=== PATIENT | female | born 1960 | race American Indian/Alaskan Native ===

== ENCOUNTER 2021-02-06 23:03 | Observation (INO) | payer OTHER ==
[2021-02-06] MEDS ORDERED: SODIUM CHLORIDE 0.9% 1000 ML 1,000 ML IV ONE (23:56)
[2021-02-06] MEDS ORDERED: fentaNYL 100 MCG/2 ML INJ IV ONE (23:56)
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
--- NOTE | 2021-02-07 00:39 | XRay Report ---
Right ankle 3 views INDICATION: Right ankle pain following injury IMPRESSION: Severely fracture or dislocation of the right ankle with comminuted intra-articular fract ure involving the tibial plafond with extension to the medial malleolus. There is also a displaced fr acture involving the lateral malleolus. The talus is posteriorly displaced with respect to the tibial plafond. Signer Name: Eduar Ziegler MD Signed: 02/07/2021 12:35 AM Workstation Name: [id number]
[2021-02-07] MEDS: ONDANSETRON 4 MG/2 ML INJ IV ONE ×2 (00:46→01:47)
[2021-02-07] MEDS: MIDAZOLAM 5 MG/5 ML INJ MDV IV ONE ×2 (00:47→01:51)
[2021-02-07 02:24] LABS: Basophils % (Auto) 0.3 % (0.0-1.8); Calcium 9.6 mg/dL (8.4-10.2); Eosinophils % (Auto) 0.8 % (0.0-4.3); Hematocrit 37.1 % (30.3-42.9); Hemoglobin 12.6 gm/dl (10.1-14.3); Lymphocytes # (Auto) 1.4 K/mm3 (1.2-5.4); Lymphocytes % (Auto) 24.6 % (13.4-35.0); Mean Corpuscular HGB Conc 34 % (30-34); Mean Corpuscular Volume 96 fl (79-97); Monocytes # (Auto) 0.5 K/mm3 (0.0-0.8); Monocytes % (Auto) 8.7 % (0.0-7.3); Platelet Count 334 K/mm3 (140-440); Red Blood Count 3.86 M/mm3 (3.65-5.03); Red Cell Distribution Width 13.3 % (13.2-15.2)
--- NOTE | 2021-02-07 02:27 | XRay Report ---
CHEST 1 VIEW INDICATION / CLINICAL INFORMATION: Preoperative surgery clearance. FINDINGS: SUPPORT DEVICES: None. HEART / MEDIASTINUM: No significant abnormality. LUNGS / PLEURA: No significant pulmonary or pleural abnormality. No pneumothorax. ADDITIONAL FINDINGS: No significant additional findings. IMPRESSION: 1. No acute findings. Signer Name: Eduar Ziegler MD Signed: 02/07/2021 2:23 AM Workstation Name: [id number]
--- NOTE | 2021-02-07 02:28 | XRay Report ---
Right ankle 3 views INDICATION: Right ankle pain following injury IMPRESSION: Improved anatomic alignment of the severe fracture dislocation of the right ankle followi ng reduction. Overlying cast placement identified. Signer Name: Eduar Ziegler MD Signed: 02/07/2021 2:23 AM Workstation Name: [id number]
[2021-02-07] MEDS ORDERED: ALBUTEROL 2.5 MG/3 ML NEBU IH PRN (03:25)
[2021-02-07] MEDS ORDERED: ACETAMINOPHEN 325 MG TAB PO PRN (03:25)
[2021-02-07] MEDS ORDERED: ONDANSETRON 4 MG/2 ML INJ IV PRN ×2 (03:25→16:00)
[2021-02-07] MEDS ORDERED: oxyCODONE /ACETAMINOPHEN 5-325MG TAB PO PRN (03:25)
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
[2021-02-07] MEDS: HEPARIN 5,000 UNIT/1 ML VIAL SUB-Q SCH ×3 (05:54→22:16)
[2021-02-07] MEDS ORDERED: IPRATROPIUM/ALBUTEROL SULFATE 3 ML AMPUL.NEB IH SCH (08:00)
[2021-02-07] MEDS: FAMOTIDINE 20 MG/2 ML INJ IV SCH ×2 (11:06→22:16)
[2021-02-07] MEDS: D5W/0.45% NACL 1,000 ML IV SCH ×2 (11:06→20:32)
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
--- NOTE | 2021-02-07 11:49 | Electrocardiograph Report ---
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
[2021-02-07] MEDS ORDERED: NEOMY 40 MG/POLYMYXIN B 200,000 UNITS/ML (GU) AMPULE IR ONE ×2 (12:24→14:24)
[2021-02-07] MEDS ORDERED: propofoL 200 MG/20 ML VIAL IV ONE ×2 (12:54→13:35)
[2021-02-07] MEDS ORDERED: HYDROmorphone 1 MG/1 ML INJ ONE (12:54)
[2021-02-07] MEDS ORDERED: LIDOCAINE MPF (2%) 20 MG/1 ML VIAL 5 ML ONE (12:54)
[2021-02-07] MEDS ORDERED: ceFAZolin 1 GM VIAL ONE ×2 (13:50)
[2021-02-07] MEDS ORDERED: ONDANSETRON 4 MG/2 ML INJ ONE (13:55)
[2021-02-07] MEDS ORDERED: dexAMETHasone 20 MG/5 ML VIAL ONE (13:55)
[2021-02-07] MEDS ORDERED: SODIUM CHLORIDE 0.9% IRR 1,500 ML BOTTLE IR ONE (14:24)
[2021-02-07] MEDS ORDERED: KETOROLAC 30 MG/1 ML INJ ONE (14:47)
--- NOTE | 2021-02-07 15:04 | Anesthesia Consultation ---
Anesthesia Consult and Med Hx Date of service: 02/07/21 - Airway Anesthetic Teeth Evaluation: Good ROM Head & Neck: Adequate Mental/Hyoid Distance: Adequate Mallampati Class: Class II Intubation Access Assessment: Probably Good - Pre-Operative Health Status ASA Pre-Surgery Classification: ASA2 Proposed Anesthetic Plan: General Nerve Block: Pop (post op, prn) - Pulmonary Hx Smoking: Yes (1 pack per week) Hx Respiratory Symptoms: No - Cardiovascular System Hx Hypertension: No - Central Nervous System CVA: No - Endocrine Hx Renal Disease: No Hx Liver Disease: No Hx Insulin Dependent Diabetes: No Hx Non-Insulin Dependent Diabetes: No Hx Thyroid Disease: No - Other Systems Hx Obesity: No
--- NOTE | 2021-02-07 15:05 | Anesthesia Day of Surgery ---
Anesthesia Day of Surgery - Day of Surgery Patient Examined: Yes Patient H&P Reviewed: Yes Patient is NPO: Yes
[2021-02-07] MEDS: HYDROmorphone 1 MG/1 ML INJ IV PRN ×2 (15:10→15:20)
[2021-02-07] MEDS ORDERED: BUPIVACAINE/PF (0.5%) 5 MG/1 ML 30 ML VIAL INFILTRATI ONE (15:12)
--- NOTE | 2021-02-07 15:12 | XRay Report ---
Right ankle 3 views INDICATION: Fracture fixation FINDINGS: Postoperative change with fibular plate and medial malleolar screw. Postsurgical fluoroscop ic alignment appears normal. Signer Name: Wade Kimble MD Signed: 02/07/2021 3:07 PM Workstation Name: [id number]
[2021-02-07] MEDS ORDERED: LACTATED RINGERS 1,000 ML ONE (15:13)
--- NOTE | 2021-02-07 15:56 | Operative Report ---
Operative Report Operative Report: Operative report Preop diagnosis : Trimalleolar fracture dislocation, RIGHT ankle Postop diagnosis: Trimalleolar fracture dislocation (without syndesmosis disruption) , RIGHT ankle Procedure: Open reduction internal fixation lateral malleolus and medial malleolus fracture, RIGHT ankle Surgeon: Angelo Perkins MD Anesthesia: General with LMA Details of operative technique: The Patient was prepared in the holding area after being brought over from the emergency department, where she was cleared for surgery. She was then brought to the operating room where she underwent satisfactory general anesthesia utilizing an LMA. She was placed in the supine position and all pressure points were well-padded. The right ankle ,foot and leg were then prepped and draped in the usual sterile fashion utilizing ChloraPrep solution as per protocol. She was administered 2 g Ancef IV prior to the start of the case. The Extremity was then elevated, exsanguinated with an Esmarch bandage and the tourniquet was inflated to 300 mmHg. A timeout was then called by the circulating nurse and once again the correct site was identified. C arm imaging was utilized throughout the case. Initial views showed a trimalleolar fracture that had been reduced in the emergency room for the tibiotalar dislocation. There was no disruption of the syndesmosis and the lateral malleolus fracture was an oblique minimally displaced fracture just above the joint line; the medial malleolus fracture was also a small singular fragment that was displaced posteriorly. The posterior malleolus was a small fragment less than 20% of the surface area of the plafond, and also was minimally displaced. Lateral Malleolus Fixation. Lateral malleolus was approached first. A lateral longitudinal incision approximately 10 cm in length was made overlying the lateral malleolar fracture. The dissection was carried down through the fibro fatty layer. Fracture hematoma was evacuated and the fracture was visualized which showed a minimally displaced distal fracture fragment with an oblique fracture line proximal to the joint line for the ankle joint. With minimal effort the fracture was reduced and a reduction clamp was used to stabilize the reduction. C- arm images confirmed near anatomic alignment. A 6-hole plate was then contoured and placed on the posterolateral edge of the distal fibula and utilizing 3.5 mm cortical screws (all but one locking )this fracture was secured in anatomic position with rigid stabilization. C-arm images in both AP and lateral planes confirmed the reduction and stabilization. Attention was then turned to the medial malleolus fracture. Medial Malleolar Fixation : Utilizing a small curved incision less than 1 cm in length, an opening was made at the very distal aspect of the medial malleolus distal fragment. Reduction earlier had relatively stabilized the medial fragment from its posterior position. Utilizing a 3.5 mm partially-threaded cannulated screw a single cannulated screw was placed across the fracture site, 44 mm in length. No other stabilization was required. C arm images then were taken for both AP ,lateral and mortise views while applying lateral stress there was no mortise widening and both fractures that were fixed showed excellent stability. The posterior malleolus fragment was deemed to be inconsequential and was therefore not surgically stabilized. Wounds were all irrigated thoroughly with normal saline. Deep fascial layer was closed with 0 Vicryl suture as was the subcutaneous layer for the lateral incision. The skin was reapproximated with 3-0 nylon interrupted sutures. The medial malleolus stab incision was repaired with 2 single 3-0 nylon sutures. Wounds were dressed with Xeroform and ABD pad secured by a Kerlix wrap, followed by application of a posterior splint which was secured with an Zander wrap. The patient was then awakened and taken to recovery room in excellent condition. Estimated blood loss: Minimal Drains: None Complications: None Tourniquet time: 51 minutes
[2021-02-07] MEDS ORDERED: diphenhydrAMINE 50 MG/ML VIAL IV SCH (16:30)
--- NOTE | 2021-02-07 17:28 | Post Anesthesia Evaluation ---
- Post Anesthesia Evaluation Patient Participated: Yes Airway Patent: Yes Stable Respiratory Function: Yes Nausea/Vomiting: No Temp > 96.8F: Yes Pain Manageable: Yes Adequeate Hydration: Yes Anesthesia Complications: No Other Comments: Popliteal block placed in PACU for post op analgesia w/ good result.
--- NOTE | 2021-02-07 20:17 | Event Note ---
Date: 02/07/21 Patient seen and examined Patient presented with right ankle fracture, orthopedic consulted Patient is s/p ORIF today, complains of pain and swelling on the right foot Continue PT evaluation supportive care Discharge planning when cleared by orthopedics
[2021-02-07] MEDS: ceFAZolin/NS 1 GM/50 ML 1 GM/50 ML BAG IV SCH (23:53)
[2021-02-08] MEDS: D5W/0.45% NACL 1,000 ML IV SCH ×2 (05:29→17:27)
[2021-02-08] MEDS: ceFAZolin/NS 1 GM/50 ML 1 GM/50 ML BAG IV SCH ×2 (05:29→13:37)
[2021-02-08] MEDS: HEPARIN 5,000 UNIT/1 ML VIAL SUB-Q SCH ×3 (05:30→21:42)
[2021-02-08 05:41] LABS: BUN/Creatinine Ratio 11; Blood Urea Nitrogen 10 mg/dL (7-17); Calcium 8.9 mg/dL (8.4-10.2); Hemolysis Index 1
[2021-02-08 05:44] LABS: Basophils % (Auto) 0.2 % (0.0-1.8); Hematocrit 38.3 % (30.3-42.9); Hemoglobin 13.3 gm/dl (10.1-14.3); Lymphocytes # (Auto) 0.5 K/mm3 (1.2-5.4); Mean Corpuscular HGB Conc 35 % (30-34); Mean Corpuscular Volume 97 fl (79-97); Monocytes # (Auto) 0.3 K/mm3 (0.0-0.8); Monocytes % (Auto) 4.6 % (0.0-7.3); Platelet Count 340 K/mm3 (140-440); Red Blood Count 3.95 M/mm3 (3.65-5.03)
[2021-02-08 05:51] LABS: INR 0.94 (0.87-1.13)
[2021-02-08] MEDS: FAMOTIDINE 20 MG/2 ML INJ IV SCH ×2 (09:29→21:42)
[2021-02-08] MEDS: MORPHINE 4 MG/1 ML INJ IV PRN (19:24)
--- NOTE | 2021-02-08 23:59 | Progress Note ---
Assessment and Plan -- Closed right ankle fracture --Dislocation of ankle, right, closed Orthopedic consulted, s/p ORIF of the right ankle joint Continue PT eval, follow clinically, pain meds as needed Encourage ambulation Patient complains of swelling pain and numbness of the right foot Continue supportive care, if clinically improves possible discharge tomorrow -- DVT prophylaxis Heparin 5000 units subcu every 8 hours for DVT prophylaxis. Pepcid 20 mg IV every 12 hours for GI prophylaxis. -- Patient is a full code Subjective Date of service: 02/08/21 Interval history: Patient seen and examined. Medical records and medication list reviewed. No acute event overnight noted by the RN. Patient denies any chest pain or difficulty breathing. Patient is tolerating diet. Continue to complains of swelling and numbness of the right foot Discussed plan of care at bedside with patient. Objective - Exam Narrative Exam: GENERAL: well-developed and well-nourished elderly -Dominican female lying on bed appeared to be in no discomfort. HEENT: Normocephalic. Atraumatic. No conjunctival congestion or icterus. Patient has moist mucous membranes. NECK: Supple. Trachea midline. CHEST/LUNGS: Clear to auscultated bilaterally, breathing nonlabored. No wheezes crackles or rhonchi. HEART/CARDIOVASCULAR: Regular in rate and rhythm. S1 and S2 positive. ABDOMEN: Abdomen is soft, nontender. Patient has normal bowel sounds. SKIN: There is no rash. Warm and dry. NEURO: No focal motor deficit. Follows command. MUSCULOSKELETAL: Right ankle with surgical dressing with swelling and tenderness of the toes EXTRIMITY: + edema, no cyanosis or clubbing. PSYCH: Cooperative. - Constitutional Vitals: Vital Signs - 12hr 02/08/21 02/08/21 02/08/21 13:35 18:17 19:24 Temperature 98.2 F 98.5 F Pulse Rate 63 65 Respiratory 16 16 18 Rate Blood Pressure 131/52 167/63 O2 Sat by Pulse 100 100 Oximetry - Labs CBC & Chem 7: 02/08/21 04:00 02/08/21 04:00 Labs: Abnormal lab results 02/08/21 02/08/21 Range/Units 04:00 04:00 MCH 34 H (28-32) pg MCHC 35 H (30-34) % RDW 13.0 L (13.2-15.2) % Lymph % (Auto) 8.0 L (13.4-35.0) % Lymph # (Auto) 0.5 L (1.2-5.4) K/mm3 Seg Neutrophils % 87.2 H (40.0-70.0) % Carbon Dioxide 21 L (22-30) mmol/L Glucose 153 H (65-100) mg/dL
[2021-02-09] MEDS: D5W/0.45% NACL 1,000 ML IV SCH (05:37)
[2021-02-09] MEDS: HEPARIN 5,000 UNIT/1 ML VIAL SUB-Q SCH (05:38)
[2021-02-09] MEDS: MORPHINE 4 MG/1 ML INJ IV PRN (05:38)
--- NOTE | 2021-02-09 08:25 | Progress Note ---
Subjective Date of service: 02/08/21 Principal diagnosis: Fracture/Dislocation RIGHT ankle Interval history: POD #1 Doing well on the first post-op day S/P ORIF RIGHT ankl;e fracture; no MAJOR COMPLAINTS Objective Vital signs: Vital Signs - 12hr 02/08/21 02/08/21 22:00 23:48 Temperature 98.7 F Pulse Rate 53 L Respiratory 20 Rate Blood Pressure 156/69 O2 Sat by Pulse 93 100 Oximetry Lying in hospital bed awake and alert. Lower extremity elevated with intact postop splint. Toes are neurovascularly intact. Vital signs are stable. - Labs CBC & BMP: 02/08/21 04:00 02/08/21 04:00 Labs: Abnormal lab results 02/09/21 Range/Units 07:37 POC Glucose 111 H (70-105) mg/dL
--- NOTE | 2021-02-09 08:39 | Progress Note ---
Subjective Date of service: 02/09/21 Principal diagnosis: Fracture/Dislocation RIGHT ankle Objective Vital signs: Vital Signs - 12hr 02/08/21 02/08/21 22:00 23:48 Temperature 98.7 F Pulse Rate 53 L Respiratory 20 Rate Blood Pressure 156/69 O2 Sat by Pulse 93 100 Oximetry - Labs CBC & BMP: 02/08/21 04:00 02/08/21 04:00 Labs: Abnormal lab results 02/09/21 Range/Units 07:37 POC Glucose 111 H (70-105) mg/dL
[2021-02-09] MEDS: FAMOTIDINE 20 MG/2 ML INJ IV SCH (09:00)
--- NOTE | 2021-02-09 09:40 | Progress Note ---
Subjective Date of service: 02/09/21 Principal diagnosis: Fracture/Dislocation RIGHT ankle Interval history: No issues during the night and physical therapy has started working with the patient Objective Vital signs: Vital Signs - 12hr 02/08/21 02/08/21 22:00 23:48 Temperature 98.7 F Pulse Rate 53 L Respiratory 20 Rate Blood Pressure 156/69 O2 Sat by Pulse 93 100 Oximetry - Labs CBC & BMP: 02/08/21 04:00 02/08/21 04:00 Labs: Abnormal lab results 02/09/21 Range/Units 07:37 POC Glucose 111 H (70-105) mg/dL
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
[2021-02-09 13:59] VITALS: BP 136/67
== END 2021-02-09 15:12 | disposition home or self-care (01) ==
LOC: ED 23:03 → INTOOBSV 02-07 03:25 → 3A 02-07 03:25
PROVIDERS: ADMIT Hospitalist; ATTEND Internal Medicine
DX: S82.851A Displaced trimalleolar fracture of right lower leg, initial encounter for closed fracture (principal); S93.04XA Dislocation of right ankle joint, initial encounter; I10 Essential (primary) hypertension; Z79.899 Other long term (current) drug therapy; Z98.890 Other specified postprocedural states; X50.0XXA Overexertion from strenuous movement or load, initial encounter; Y93.89 Activity, other specified; Y92.89 Other specified places as the place of occurrence of the external cause; Y99.8 Other external cause status
CPT/HCPCS: 27822; 36415; 71045; 73600; 73610; 80048; 82962; 85025; 85610; 93005; 94640; 96361; 96365; 96366; 96372; 96375; 96376; 97116; 97161; 99285; C1713; C1769; G0378; J0690; J1100; J1170; J1200; J1644; J1885; J2250; J2270; J2405; J2704; J3010; J7030; J7120; 64447; 76942; J7070

== ENCOUNTER 2021-02-22 13:49 | Outpatient (CLI) | payer OTHER ==
--- NOTE | 2021-02-22 14:42 | XRay Report ---
RIGHT ANKLE 3 VIEWS INDICATION: OTHER FRACTURE OF RIGHT LOWER LEG,. COMPARISON: 02/07/2021 IMPRESSION: Previously described bimalleolar fracture has been internally fixated. Alignment is near -anatomic. No joint pathology is appreciated. There is diffuse soft tissue swelling. The posterior sp lint has been removed. Signer Name: Sancho Du Jr, MD Signed: 02/22/2021 2:37 PM Workstation Name: [id number]
== END 2021-02-22 13:50 | disposition home or self-care (01) ==
LOC: XRAY 13:49
PROVIDERS: ATTEND Orthopaedic Surgery
DX: S82.891A Other fracture of right lower leg, initial encounter for closed fracture (principal); X58.XXXA Exposure to other specified factors, initial encounter; Y93.89 Activity, other specified; Y92.89 Other specified places as the place of occurrence of the external cause; Y99.8 Other external cause status